=== PATIENT | female | born 1940 | race Caucasian/White ===

== ENCOUNTER 2019-10-07 06:00 | Day surgery (SDC) | payer OTHER, BC ==
[2019-10-05 16:21] VITALS: BMI 26.5
[~2019-10-07 06:00] MED LIST: LIDOCAINE HCL 2% (50ML VIAL) PNB ONE
[2019-10-07] MEDS ORDERED: LIDOCAINE HCL 2% (20ML MULTI-DOSE VIAL) ONE (07:27)
[2019-10-07] MEDS ORDERED: PROPOFOL 20 ML ONE ×2 (07:35→08:15)
[2019-10-07] MEDS ORDERED: MIDAZOLAM HCL 2 MG/2 ML SINGLE DOSE VIAL ONE (07:35)
[2019-10-07] MEDS ORDERED: ONDANSETRON 4 MG/2 ML VIAL IVPUSH PRN (08:35)
[2019-10-07] MEDS ORDERED: oxyCODONE HCL 5 MG TABLET PO PRN ×2 (08:35)
[2019-10-07] MEDS ORDERED: LACTATED RINGERS SOLUTION 1,000 ML IV SCH (08:45)
[2019-10-07 09:22] VITALS: TEMP 97.7
[2019-10-07 10:10] VITALS: BP 130/74; PULSE 64
--- NOTE | 2019-10-07 14:48 | OP ---
DATE OF OPERATION: 10/07/2019 PREOPERATIVE DIAGNOSIS: Left thumb subungual mass. POSTOPERATIVE DIAGNOSIS: Left thumb subungual mass. OPERATIVE PROCEDURE: Left thumb subungual mass excision, and biopsy, and culture. SURGEON: Jesse Shelton MD PLANT TECHNICIAN/CONTROL ROOM OPERATOR: NALINI Flanagan ANESTHESIA: Local with sedation. COMPLICATIONS: None. ESTIMATED BLOOD LOSS: Minimal. INDICATIONS FOR PROCEDURE: The patient is a 79-year-old, female with the above finding, indicated for operative treatment. Risks, benefits, and alternatives were discussed with patient at length. Proper informed consent was obtained. DESCRIPTION OF PROCEDURE: After proper identification of patient and correct operative site, patient was brought to the operating room and placed supine on the operating room table with all prominences well padded. Sedation and local anesthesia were given. Left upper extremity was prepped and draped in the usual sterile fashion. A well-padded tourniquet was placed over a sterile prep. Esmarch bandage used to exsanguinate left upper extremity. Tourniquet was inflated to 250 mmHg. The nail plate was elevated, but left attached to the proximal margin. There was discoloration of the undersurface of the nail plate. However, no black or dark or discoloration was noted on the nail bed itself, including the germinal and sterile matrix. However, a good portion of the distal aspect had some scarred sterile matrix tissue and biopsy was performed here. The nail was also trimmed and the discolored parts were sent for biopsy and culture, as well. Fungal cultures were sent. The wound was irrigated and repaired with Steri-Strips. Patient was reversed from anesthesia and brought to recovery room in stable condition. She tolerated procedure well. JESSE SHELTON M.D. [id number]
--- NOTE | 2019-10-12 11:16 | PATH ---
Surgical Pathology Report Patient Name: WILLIAM ALEXANDER Med. Rec. #: [id number] /Age/Gender: 1940 (Age: 79) / F Account: [id number] Location: [facility] Taken: 10/07/2019 Received: 10/07/2019 Reported: 10/12/2019 Physicians: Jesse Kuo M.D. 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 (SEE NOTE). Note: PAS stain (performed at [facility]) was used in the evaluation of this case and demonstrates the presence of numerous budding fungal forms. Electronically Signed Haritha Wallace M.D. Gross Description Received in formalin labeled "nailbed and nail plate right thumb," are 2 ferreira-yellow portions of nail measuring 0.5 x 0.2 x 0.1 cm and 1.1 x 0.4 x 0.1 cm. The larger portion is bisected and the specimen is entirely submitted in one cassette. DL/10/08/2019 saudi10/08/2019
== END 2019-10-07 10:12 | disposition home or self-care (01) ==
LOC: FASU 06:00
PROVIDERS: ATTEND Orthopaedic Surgery Hand Surgery
PROC: 0HBQXZX Excision of Finger Nail, External Approach, Diagnostic (ICD-10-PCS; 2019-10-07)
PROC: 0JBJ0ZZ Excision of Right Hand Subcutaneous Tissue and Fascia, Open Approach (ICD-10-PCS; principal; 2019-10-07 08:00)
DX: D21.11 Benign neoplasm of connective and other soft tissue of right upper limb, including shoulder (principal); B35.1 Tinea unguium
CPT/HCPCS: 87070; 87075; 87077; 87186; 87205; 88305-TC; 88313-TC; 94760